=== PATIENT | female | born 1995 | race Caucasian/White ===

== ENCOUNTER 2018-04-27 11:52 | Emergency (ER) | payer OTHER ==
[2018-04-27 12:09] VITALS: BP 113/64
--- NOTE | 2018-04-27 12:45 | UC ---
[facility] HPI - HPI Summary HPI Summary: toothache x 1 day pain is sever 10 out of 10 left lower and upper jaw worse with chewing , nothing makes it better no fever - History of Current Complaint Chief Complaint: UCDentalProblem Stated Complaint: LEFT FACIAL SWELLING, TOOTH PAIN Time Seen by Provider: 04/27/18 12:36 Hx Obtained From: Patient Hx Last Menstrual Period: unknown, depo Onset/Duration: Gradual Onset, Lasting Days - 1, Still Present Severity: Severe Pain Intensity: 10 Aggravating Factor(s): Cold, Chewing Alleviating Factor(s): Nothing Dental: 1 - pain 2 - pain - Allergies/Home Medications Allergies/Adverse Reactions: Allergies Allergy/AdvReac Type Severity Reaction Status Date / Time No Known Allergies Allergy Verified 04/27/18 12:06 Home Medications: Home Medications medroxyPROGESTERone ACETATE* [DEPO-Provera] 150 mg IM SEE INSTRUCTIONS 04/27/18 [History Confirmed 04/27/18] PMH/Surg Hx/FS Hx/Imm Hx Previously Healthy: Yes - Surgical History Surgical History: None - Family History Known Family History: Negative: Diabetes - Social History Alcohol Use: None Substance Use Type: None Smoking Status (MU): Light Every Day Tobacco Smoker Type: Cigarettes Amount Used/How Often: 4 per day Review of Systems All Other Systems Reviewed And Are Negative: Yes Constitutional: Positive: Negative Skin: Positive: Negative Eyes: Positive: Negative ENT: Positive: Dental Pain Respiratory: Positive: Negative Cardiovascular: Positive: Negative Is Patient Immunocompromised?: No Physical Exam Triage Information Reviewed: Yes Appearance: Well-Appearing, Well-Nourished, Pain Distress Vital Signs: Initial Vital Signs Temp 98.4 F 04/27/18 12:06 Pulse 64 04/27/18 12:06 Resp 18 04/27/18 12:06 BP 113/64 04/27/18 12:06 Pulse Ox 100 04/27/18 12:06 Vital Signs Reviewed: Yes Eye Exam: Normal Eyes: Positive: Conjunctiva Clear ENT: Positive: Normal ENT inspection, Hearing grossly normal, Pharynx normal Dental: Positive: Percussion Tenderness @ - 17,18,19. Negative: Dental Fracture @ Neck exam: Normal Neck: Positive: Supple, Nontender, No Lymphadenopathy Respiratory: Positive: Chest non-tender, Lungs clear, Normal breath sounds Cardiovascular: Positive: RRR, No Murmur, Pulses Normal Skin Exam: Normal Dental Complaint Course/Dx - Differential Dx/Diagnosis Provider Diagnosis: Pain, dental Discharge - Sign-Out/Discharge Documenting (check all that apply): Patient Departure All imaging exams completed and their final reports reviewed: No Studies - Discharge Plan Condition: Stable Disposition: HOME Prescriptions: Amoxicillin PO (*) [Amoxicillin 875 MG (*)] 875 mg PO BID #20 tab HYDROcodone/ACETAMIN 5-325 MG* [[place] 5-325 TAB*] 1 tab PO Q6H PRN #10 tab MDD 4 PRN Reason: Pain Patient Education Materials: Dental Abscess (ED) Referrals: Russell Stahl MD [Primary Care Provider] - Additional Instructions: follow up with your dentist [place] - Billing Disposition and Condition Condition: STABLE Disposition: Home
== END 2018-04-27 12:49 | disposition home or self-care (01) ==
LOC: UCCORT 11:52
DX: K08.89 Other specified disorders of teeth and supporting structures (principal); F17.210 Nicotine dependence, cigarettes, uncomplicated
CPT/HCPCS: 99202; G0463

== ENCOUNTER 2018-06-14 11:15 | Emergency (ER) | payer OTHER ==
[2018-06-14 11:55] VITALS: BP 110/69
[2018-06-14] MEDS ORDERED: Penicillin VK TAB* 250 MG PO ONE (12:29)
--- NOTE | 2018-06-14 12:35 | UC ---
[facility] HPI - HPI Summary HPI Summary: The patient is a 22-year-old female with left lower toothache times days. She states that she is planning to have the tooth pulled on Thursday of this week. Denies any fever or chills she denies any nausea vomiting or diarrhea. She denies any history of diabetes or heart murmur. She states that over the past 1 -2 days she has had worsening pain and notes swelling of her gum. He has been taking 100 mg of ibuprofen without relief. - History of Current Complaint Chief Complaint: UCDentalProblem Stated Complaint: DENTAL CONCERN Time Seen by Provider: 06/14/18 12:02 Hx Obtained From: Patient Hx Last Menstrual Period: on depo, no missed injections Onset/Duration: Gradual Onset Severity: Severe Pain Intensity: 8 Pain Scale Used: 0-10 Numeric Aggravating Factor(s): Heat, Cold, Chewing Alleviating Factor(s): Nothing Related History: Swelling Dental: 1 - abscess - Allergies/Home Medications Allergies/Adverse Reactions: Allergies Allergy/AdvReac Type Severity Reaction Status Date / Time No Known Allergies Allergy Verified 06/14/18 11:52 Home Medications: Home Medications Ibuprofen TAB* [Advil TAB*] 800 mg PO Q6H PRN 06/14/18 [History Confirmed ] PMH/Surg Hx/FS Hx/Imm Hx Previously Healthy: Yes - Surgical History Surgical History: None - Family History Known Family History: Positive: Hypertension Negative: Cardiac Disease, Diabetes - Social History Alcohol Use: None Substance Use Type: None Smoking Status (MU): Light Every Day Tobacco Smoker Type: Cigarettes Amount Used/How Often: 4 per day Review of Systems All Other Systems Reviewed And Are Negative: Yes Constitutional: Positive: Negative Skin: Positive: Negative Eyes: Positive: Negative ENT: Positive: Dental Pain Respiratory: Positive: Negative Cardiovascular: Positive: Negative Gastrointestinal: Positive: Negative Genitourinary: Positive: Negative Motor: Positive: Negative Neurovascular: Positive: Negative Musculoskeletal: Positive: Negative Neurological: Positive: Negative Psychological: Positive: Negative Physical Exam Triage Information Reviewed: Yes Appearance: Well-Appearing, No Pain Distress, Well-Nourished Vital Signs: Initial Vital Signs Temp 98.4 F 06/14/18 11:52 Pulse 63 06/14/18 11:52 Resp 15 06/14/18 11:52 BP 110/69 06/14/18 11:52 Pulse Ox 100 06/14/18 11:52 Vital Signs Reviewed: Yes Eyes: Positive: Conjunctiva Clear ENT: Positive: Hearing grossly normal, Dental tenderness, Uvula midline. Negative: Nasal drainage, TMs normal, Tonsillar swelling, Tonsillar exudate, Trismus, Muffled voice, Sinus tenderness Dental: Positive: Abscess @ - see image Neck: Positive: Supple, Nontender Respiratory: Positive: Lungs clear, Normal breath sounds, No respiratory distress Cardiovascular: Positive: RRR, No Murmur Musculoskeletal: Positive: ROM Intact, No Edema Neurological: Positive: Alert Psychological Exam: Normal Skin Exam: Normal Dental Complaint Course/Dx - Differential Dx/Diagnosis Provider Diagnosis: Dental abscess Discharge - Sign-Out/Discharge Documenting (check all that apply): Patient Departure All imaging exams completed and their final reports reviewed: No Studies - Discharge Plan Condition: Stable Disposition: HOME Prescriptions: HYDROcodone/ACETAMIN 5-325 MG* [[place] 5-325 TAB*] 1 tab PO Q4H PRN #6 tab MDD 6 PRN Reason: Pain Penicillin VK 500 MG TAB(NF) [Penicillin VK 500 mg Tab] 500 mg PO QID #28 tab Patient Education Materials: Dental Abscess (ED) Referrals: Scarlett Ayala MD [Primary Care Provider] - Additional Instructions: call your dentist to discuss follow up take two more doses of Pen Vee K today then one pill 4x day warm compresses I suggest you take 800 mg of ibuprofen 3x day with food recheck in 48 hours if not improved to ER for worsening symptoms Opioid-containing medications can cause drowsiness and sedation. You t should not drive or operate machinery or similar activities while taking this medication. Opioids can also cause a positive drug screen, and can be habit- forming. You should follow the instructions exactly and not take any extra medication. Opioid medications should be stored in a secure manner to avoid diversion or theft. You should not drink alcohol while taking these medications - Billing Disposition and Condition Condition: STABLE Disposition: Home
== END 2018-06-14 12:54 | disposition home or self-care (01) ==
LOC: UCCORT 11:15
DX: K04.7 Periapical abscess without sinus (principal); F17.210 Nicotine dependence, cigarettes, uncomplicated
CPT/HCPCS: 99212; A9270-GY; G0463

== ENCOUNTER 2018-07-12 12:39 | Emergency (ER) | payer OTHER ==
[2018-07-12 14:15] VITALS: BP 119/78
--- NOTE | 2018-07-12 14:21 | UC ---
Dental HPI - HPI Summary HPI Summary: 22 year old female presents with recurring dental abscess. She has been seen at this facility 04/27/2018 and 06/14/2018 for similar complaints and was started on 10 day courses of amoxicillin 875 mg and penicillin VK 500 mg respectively. States she recently saw her dentist on 06/30/2018 who placed her on a 10 day course of clindamycin 300 mg QID which she states she completed in its entirity. Had some improvement in symptoms but abscess never completely resolved. States pain has worsened again since completing the antibiotic. She compains of left lower molar dental pain with tenderness and swelling of the gums. Has taken ibuprofen without relief. Denies fever, chills, or trismus. - History of Current Complaint Chief Complaint: UCDentalProblem Stated Complaint: DENTAL CONCERN Time Seen by Provider: 07/12/18 14:15 Hx Obtained From: Patient Hx Last Menstrual Period: on depo, no missed injections Pain Intensity: 9 Dental: 1 - Small abscess with erythema, induration, small amount of fluctuance without drainage. - Allergies/Home Medications Allergies/Adverse Reactions: Allergies Allergy/AdvReac Type Severity Reaction Status Date / Time No Known Allergies Allergy Verified 07/12/18 14:13 PMH/Surg Hx/FS Hx/Imm Hx Previously Healthy: Yes - Denies significant PMH - Surgical History Surgical History: None - Family History Known Family History: Positive: Hypertension Negative: Cardiac Disease, Diabetes - Social History Occupation: Unemployed Lives: With Family Alcohol Use: None Substance Use Type: None Smoking Status (MU): Light Every Day Tobacco Smoker Type: Cigarettes Amount Used/How Often: 4 per day Review of Systems All Other Systems Reviewed And Are Negative: Yes Constitutional: Negative: Fever, Chills Skin: Positive: Negative ENT: Positive: Dental Pain. Negative: Sore Throat, Ear Ache, Nasal Discharge, Sinus Congestion, Sinus Pain/Tenderness, Other - Trismus, dysphagia Respiratory: Negative: Shortness Of Breath, Cough Cardiovascular: Negative: Palpitations, Chest Pain Gastrointestinal: Negative: Abdominal Pain, Vomiting, Diarrhea, Nausea Genitourinary: Positive: Negative Musculoskeletal: Positive: Negative Neurological: Positive: Negative Is Patient Immunocompromised?: No Physical Exam - Summary Physical Exam Summary: GENERAL APPEARANCE: Well developed, well nourished, alert and cooperative, and appears to be in no acute distress. HEAD: Atraumatic. normocephalic. No facial swelling noted. EYES: Conjunctiva clear. No drainage. Vision is grossly intact. EARS: External auditory canals and tympanic membranes clear, hearing grossly intact. NOSE: No nasal discharge. THROAT: Pharynx normal. No tonsilar inflammation, swelling, exudate, or lesions. Small area of eythema, tenderness, induration and small amount of fluctuance noted at the base of the 1st left lower molar (#19). NECK: Neck supple, non-tender without lymphadenopathy. CARDIAC: Normal S1 and S2. No S3, S4 or murmurs. Rhythm is regular. There is no peripheral edema, cyanosis or pallor. Extremities are warm and well perfused. Capillary refill is less than 2 seconds. LUNGS: Clear to auscultation without rales, rhonchi, wheezing or diminished breath sounds. ABDOMEN: Positive bowel sounds. Soft, nondistended, nontender. No guarding or rebound. No masses or hepatosplenomegally. MUSKULOSKELETAL: ROM intact to all extremities. No joint erythema or tenderness. Normal muscular development. Normal gait. SKIN: Skin normal color, texture and turgor with no lesions or eruptions. Triage Information Reviewed: Yes Vital Signs: Initial Vital Signs Temp 97.8 F 07/12/18 14:10 Pulse 67 07/12/18 14:10 Resp 16 07/12/18 14:10 BP 119/78 07/12/18 14:10 Pulse Ox 100 07/12/18 14:10 Vital Signs Reviewed: Yes Dental Complaint Course/Dx - Course Course Of Treatment: 22 year old female presents with recurring dental abscess. She has been seen at this facility 04/27/2018 and 06/14/2018 for similar complaints and was started on 10 day courses of amoxicillin 875 mg and penicillin VK 500 mg respectively. States she recently saw her dentist on 2018 who placed her on a 10 day course of clindamycin 300 mg QID which she states she completed in its entirity. Had some improvement in symptoms but abscess never completely resolved. States pain has worsened again since completing the antibiotic. She compains of left lower molar dental pain with tenderness and swelling of the gums. Has taken ibuprofen without relief. Denies fever, chills, or trismus. Afebrile. VSS. Exam reveals a small abscessed area at the base of #19 with tenderness, erythema, induration, and small amount of fluctuance. No trismus. Exam otherwise unremarkable. Will place patient back on clindamycin 300 mg QID x 10 days. Recommend continued use of ibuprofen for pain but will provide her with a few doses of hydrocodone-acetaminophen 5 mg/325 mg every 8 hours as needed for severe pain. The [facility] DOCUMENT MANAGEMENT CONSULTANT was consulted prior to prescribing. Reference #: [id number]. She has been encouraged to contact her dentist for appointment at next available. Anticipatory guidance and warning symptoms reviewed with patient. Verbalizes understanding and agrees with POC. - Differential Dx/Diagnosis Differential Diagnosis/Dx: Dental Abscess, Dental Caries, Fractured Tooth, Odontogenic Pain, Peridontic Disease Provider Diagnosis: Abscess, dental Discharge - Sign-Out/Discharge Documenting (check all that apply): Patient Departure All imaging exams completed and their final reports reviewed: No Studies - Discharge Plan Condition: Stable Disposition: HOME Prescriptions: Clindamycin HCl 300 mg PO Q6HR #40 capsule Hydrocodone/Acetaminophen [Hydrocodone-Acetamin 5-325 mg] 1 each PO Q8HR PRN #9 tablet MDD 3 PRN Reason: Severe Pain Patient Education Materials: Dental Abscess (ED) Referrals: Scarlett Ayala MD [Primary Care Provider] - Additional Instructions: Take clindamycin 300 mg every 6 hours for 10 days. Continue to use ibuprofen 600 mg every 6 hours as needed for pain. Use hydrocodone-acetaminophen 5 mg/325 mg 1 tab every 8 hours as needed for severe pain. Continue to do the warm salt water rinses after every meal and at bedtime. Call and schedule appointment with your dentist at next available appointment. - Billing Disposition and Condition Condition: STABLE Disposition: Home
== END 2018-07-12 14:49 | disposition home or self-care (01) ==
LOC: UCCORT 12:39
DX: K04.7 Periapical abscess without sinus (principal); F17.210 Nicotine dependence, cigarettes, uncomplicated
CPT/HCPCS: 99212; G0463

== ENCOUNTER 2018-12-13 13:14 | Emergency (ER) | payer OTHER ==
[2018-12-13 13:49] VITALS: BP 108/64
[2018-12-13] MEDS ORDERED: Ketorolac INJ* 30 MG/ML 1 ML VIAL IM ONE (13:56)
--- NOTE | 2018-12-13 14:06 | UC ---
Dental HPI - HPI Summary HPI Summary: 23-year-old female who states that she has had left lower dental pain with an abscess for the past 4 months. She has come here for treatment and been on amoxicillin without improvement clindamycin without improvement she has not followed up with the primary dentist. The present pain started approximately 2 days ago. - History of Current Complaint Chief Complaint: UCDentalProblem Stated Complaint: DENTAL COMPLAINT Time Seen by Provider: 12/13/18 13:51 Hx Obtained From: Patient Hx Last Menstrual Period: on depo, no missed injections ?: No Onset/Duration: Gradual Onset Severity: Moderate Pain Intensity: 9 Aggravating Factor(s): Cold, Chewing Alleviating Factor(s): Nothing Related History: Previous Dental Care on Same Tooth, Other - Patient states she' s had a chronic tooth abscess for the past 4 months. She states her dentist wants to pull the tooth but he will pull as long as there is an abscess present. - Allergies/Home Medications Allergies/Adverse Reactions: Allergies Allergy/AdvReac Type Severity Reaction Status Date / Time No Known Allergies Allergy Verified 12/13/18 13:43 PMH/Surg Hx/FS Hx/Imm Hx Previously Healthy: Yes - Surgical History Surgical History: None - Family History Known Family History: Positive: Hypertension Negative: Cardiac Disease, Diabetes - Social History Alcohol Use: None Substance Use Type: None Smoking Status (MU): Light Every Day Tobacco Smoker Type: Cigarettes Amount Used/How Often: 4 per day Review of Systems All Other Systems Reviewed And Are Negative: Yes ENT: Positive: Dental Pain Is Patient Immunocompromised?: No Physical Exam Triage Information Reviewed: Yes Appearance: Well-Appearing, No Pain Distress, Well-Nourished Vital Signs: Initial Vital Signs Temp 97.1 F 12/13/18 13:45 Pulse 70 12/13/18 13:45 Resp 18 12/13/18 13:45 BP 108/64 12/13/18 13:45 Pulse Ox 98 12/13/18 13:45 Vital Signs Reviewed: Yes Eyes: Positive: Conjunctiva Clear ENT: Positive: Hearing grossly normal, Pharynx normal, TMs normal Dental: Positive: Percussion Tenderness @ - Tooth #19 left lower jaw is tender on palpation and partially broken. Gumline is pink with mild swelling. I see no evidence of abscess formation. Neck: Positive: Supple, Nontender, No Lymphadenopathy Skin Exam: Normal Dental Complaint Course/Dx - Course Course Of Treatment: Patient is given Toradol 30 mg IM here. She's alternate Tylenol every 4 hours and Motrin every 8 hours. And starting her on Augmentin 875 mg by mouth twice a day 10 days. I strongly urged that she follows up with the dentist and we talked about the problems with being on numerous antibiotics without treatment of the tooth or the abscess. She has dental insurance therefore I advised her she could see a different dentist and get another opinion. - Differential Dx/Diagnosis Provider Diagnosis: Toothache Discharge - Sign-Out/Discharge Documenting (check all that apply): Patient Departure All imaging exams completed and their final reports reviewed: No Studies - Discharge Plan Condition: Fair Disposition: HOME Prescriptions: Amoxicillin/Clavulanate TAB* [Augmentin TAB 875*] 875 mg PO BID 10 Days #20 tab Oxycodone HCl/Acetaminophen [Percocet] 1 tab PO Q4H PRN #6 tab MDD 6 PRN Reason: Pain Patient Education Materials: Toothache (ED) Referrals: Scarlett Ayala MD [Primary Care Provider] - Additional Instructions: Use the Percocet for severe pain. Do not take Percocet within 4 hours of taking regular Tylenol. Alternate Motrin every 8 hours with Tylenol every 4 hours. Definite follow-up with your dentist for further care. Take the Augmentin with food. - Billing Disposition and Condition Condition: FAIR Disposition: Home
== END 2018-12-13 14:27 | disposition home or self-care (01) ==
LOC: UCCORT 13:14
DX: S02.5XXA Fracture of tooth (traumatic), initial encounter for closed fracture (principal); X58.XXXA Exposure to other specified factors, initial encounter; Y92.9 Unspecified place or not applicable; F17.210 Nicotine dependence, cigarettes, uncomplicated
CPT/HCPCS: 96372; 99212; G0463; J1885